=== PATIENT | female | born 1990 | race Caucasian/White ===

== ENCOUNTER 2016-09-29 17:57 | Emergency (ER) | payer OTHER ==
--- NOTE | 2016-09-29 18:25 | ERNOTE ---
Medical Problem HPI - Narrative Date of Service: 09/29/16 - General Chief Complaint: General Assessment Time Seen by Provider: 09/29/16 18:09 Source: patient Exam Limitations: no limitations - Immun/Allergies/Home Medications Immunizations: IMMUNIZATION HX Immunizations Up to Date Yes History of Influenza Vaccine No Hx Pneumococcal Vaccination No Allergies/Adverse Reactions: Allergies Penicillins Allergy (Unknown, Verified 09/29/16 18:07) acetaminophen [From Vicodin] Adverse Reaction (Mild, Verified 09/29/16 18:07) Nausea hydrocodone [From Vicodin] Adverse Reaction (Mild, Verified 09/29/16 18:07) Nausea - History of Present History Narrative: Pt. comes in with c/o moderate amount of vaginal bleeding for two days. Pt. denies any SOB, CP, NVD, but does state that she has mild BLQ cramping. Pt. is 11 weeks with her LMP Jul 05. Pt. denies any dizziness or syncope. Pt. denies any alleviating or aggravating factors. Review of Systems - Review of Systems Constitutional: Present: no symptoms reported. Absent: recent illness, fever, chills, weakness, fatigue, malaise EYE: Present: no symptoms reported ENT: Present: no symptoms reported Respiratory: Present: no symptoms reported. Absent: shortness of breath, cough , wheezing Cardiology: Present: no symptoms reported. Absent: chest pain, palpitations, edema Gastrointestinal/Abdominal: Present: abdominal pain - BLQ and suprapubic Genitourinary: Present: discharge - blood Musculoskeletal: Present: no symptoms reported. Absent: back pain, joint pain Skin: Present: no symptoms reported Neurological: Present: no symptoms reported. Absent: headache, dizziness/light- headedness, numbness, tingling All Other Systems: All systems neg except as marked - Patient's Past Medical History Patient History - Medical: No pertinent hx Patient History - Cardiac/Respiratory: No pertinent hx Patient History - Cancer: No Hx of Cancer Patient History - Surgical Procedures: Other Patient History - Other: None LMP (females 10-50): - Social History Living Situations: home Psych History: No pertinent hx Smoking Status: Current every day smoker - Immunizations Immunizations Up to Date: Yes Hx Pneumococcal Vaccination: No History of Influenza Vaccine: No Physical Exam - Physical Exam General Appearance: Present: wd/wn, alert, no apparent distress Eye Exam: Normal inspection: bilateral, PERRL: bilateral, EOMI: bilateral Ears, Nose, Throat: Present: normal ENT inspection, normal pharynx Neck: Present: normal inspection, nontender. Absent: lymphadenopathy (R), lymphadenopathy (L) Respiratory: Present: no respiratory distress, normal breath sounds, no accessory muscle use, chest nontender Cardiovascular/Chest: Present: regular rate, rhythm, no murmur, normal peripheral pulses Gastrointestinal/Abdominal: Present: normal bowel sounds, nondistended, soft, no organomegaly, tenderness - suprapubic Back Exam: Present: normal inspection, normal range of motion, no CVA tenderness , no vertebral tenderness Neurological Exam: Present: alert, oriented, normal mood/affect, no motor/ sensory deficits Skin Exam: Present: normal color, warm/dry. Absent: pallor, skin rash Pelvic Exam: Present: active bleeding - moderate. Absent: cervical motion tendernes, tender adnexa, tender uterus ED Progress - Date and Time Seen: Date and Time: 09/29/16 20:[address] Brennan and we will have pt. recheck HCG in 2 days and encourage pt to have ultrasound in 2 days as well. - Results and Orders Patient's Lab Results:: I have reviewed the patient's lab results. - Vital Signs Patient's Vital Signs:: I have reviewed the patient's vital signs. Vital Signs: Vital Signs 09/29/16 18:03 Temperature 36.9 C Pulse Rate 86 Respiratory 16 Rate Blood Pressure 137/81 O2 Sat by Pulse 85 L Oximetry - CT/Ultrasound CT/Ultrasound Narrative: US with cystic lesion in fundus that could be early twin or molar . - Progress/Reassessment Chief Complaint: General Assessment Progress:: Unchanged Departure - Departure Clinical Impression: Threatened miscarriage Disposition: Home self-care Condition: Good Instructions: Threatened Miscarriage, Ilka-ci-Rubr, Pelvic Rest Additional Instructions: Please follow up with your [employer] OFFICER for repeat HCG levels and repeat Ultrasound on Tuesday. Please call first thing in the morning for appointment. Please no working or house work bed rest only, no sex or douching. No lifting. Please return to the ER if you start to get worse with pain or bleeding. Referrals: Teresa Herman ARNP [Primary Care Provider] -
[2016-09-29 18:33] LABS: Hematocrit 44.6 % (37.0-47.0); Hemoglobin 15.3 gm/dL (12.5-16.0); Mean Cell Volume 88.3 fl (78-100); Mean Corpuscular Hemoglobin 30.3 pg (27-31); Mean Corpuscular Hgb Conc 34.3 g/dl (32-36); Mean Platelet Volume 9.5 fl (6.0-9.5); Neutrophil # 5.6 K/mm3 (1.3-6.0); Neutrophil % 54.6 % (42-75.0); Platelet Count 275 K/mm3 (150-450); Red Blood Count 5.05 M/mm3 (4.2-5.4); Red Cell Distribution Width 12.7 % (11.5-14.0); White Blood Count 10.2 K/mm3 (4.0-10.5)
--- OUTSIDE RECORDS SUMMARY | 2016-09-29 18:42 | XMS REPORT | Continuity of Care Document ---
:1990 Author Organization [facility] ([facility]) Address [place] [address] Phone [phone] Care Team Providers Name Role Phone Unavailable Primary Care Provider Unavailable Source Comments This disclosure is being made pursuant to the Care Everywhere program, applicable federal and state laws, and may not contain all informaitonavailable regarding this patient.[facility] ([facility]) Active Allergies and Adverse Reactions Not on File Current Medications Not on file Active Problems Not on file Social History Tobacco Use Types Packs/Day Years Used Date Never Assessed Plan of Care Health Maintenance Due Date Last Done Comments Hepatitis B Vaccine (1 of 3 - Primary Series) 1990 HPV Vaccine (1 of 3 - Female/Unknown 3 Dose Series) 2001 Tdap Vaccine 2001 Cervical Cancer Screening 01/29/2008 Lipid Disorder Screening 01/29/2008 MMR Vaccine 01/29/2008 Td Vaccine 01/29/2008 Varicella Vaccine (1 of 2 - Adult - No Evidence of 01/29/2008 Immunity) Influenza Vaccine: Seasonal (#1) 12/29/2015 Results from Last 3 Months Not on file
[2016-09-29 18:52] LABS: Albumin * 3.8 gm/dl (3.4-5.0); Anion Gap 14.8 mmol/L (6.8-13.8); BUN/Creatinine Ratio 10.1 (9.0-21.6); Bilirubin, Total 0.2 mg/dL (0.0-1.1); Ca. Corrected For Albumin 8.9 mg/dL (8.4-10.2); Calcium * 9.1 mg/dL (7.9-10.9); Carbon Dioxide 25.5 mmol/L (24-32.6); Potassium 3.3 mmol/L (3.4-4.6); Total Protein 7.9 gm/dL (6.2-8.2)
[2016-09-29 19:34] LABS: Urine Bilirubin Negative (NEGATIVE); Urine Blood Negative /ul (NEGATIVE); Urine Ketone Negative (NEGATIVE); Urine Nitrite Negative (NEGATIVE); Urine Protein Negative (NEGATIVE); Urine Specific Gravity >=1.030 SP.GR. (1.005-1.010); Urine Urobilinogen Normal (NORMAL)
[2016-09-29 19:47] LABS: Urine Appearance Clear; Urine Bacteria None Seen; Urine Color Yellow; Urine RBC None Seen /hpf (0-5); Urine WBC None Seen /hpf (0-5)
[2016-09-29 20:49] VITALS: BP 139/80
== END 2016-09-29 21:27 | disposition home or self-care (01) ==
LOC: ER 17:57
DX: O20.0 Threatened abortion (principal); Z3A.11 11 weeks gestation of pregnancy; Z33.1 Pregnant state, incidental; Z72.0 Tobacco use

== ENCOUNTER 2018-11-28 14:26 | Inpatient (IN) ==
[2018-11-28] MEDS ORDERED: NALBUPHINE HCL 10 MG/ML AMPUL IV PRN ×2 (14:31)
[2018-11-28] MEDS ORDERED: OXYTOCIN/DEXTROSE 5%-WATER 30 UNITS/500 ML BAG IV ONE (14:31)
[2018-11-28] MEDS ORDERED: ceFAZolin SODIUM/DEXTROSE,ISO 2 GM/50 ML BAG IV ONE (14:31)
[2018-11-28] MEDS ORDERED: LIDOCAINE HCL 50 ML VIAL PERI PRN (14:31)
[2018-11-28] MEDS ORDERED: RINGER'S SOLUTION,LACTATED 1,000 ML IV ONE (14:31)
[2018-11-28] MEDS ORDERED: ONDANSETRON 4 MG TAB.RAPDIS PO PRN (14:31)
--- NOTE | 2018-11-28 14:45 | HP ---
Chief Complaint - Chief Complaint Date of Service: 11/28/18 Time of Service: 14:37 Chief Complaint: Induction of labor History of Present Illness: The patient denies regular ctx, vb or lof. Fetus is active Medical History (Updated 09/12/18 @ 13:59 by Светлана Garcia RN) Threatened miscarriage (Acute) Onset Date: 09/12/18 Dermatitis Obesity Depression Onset Date: ~02/2016 Sertraline- no medication since 2016 , spontaneous Onset Date: ~09/2016 Chlamydia infection Onset Date: ~2011 Heart murmur at Otitis media Torn ligament Onset Date: ~2014 Left thumb w/repair Vertigo Surgical History: Surgical History (Updated 04/19/18 @ 15:32 by Светлана Garcia RN) H/O adenoidectomy Onset Date: 05/27/98 H/O thumb surgery Left H/O tympanostomy Onset Date: 05/27/98 Family History: Family History (Updated 04/19/18 @ 15:34 by Светлана Garcia RN) Mother Adopted Grandmother CVA (cerebral vascular accident) Grandfather Lung cancer w/ mets Social History: Preferred Language Portuguese Smoking Status Former smoker Psych History No pertinent hx (Last Updated 11/28/18 @ 13:57 by Claritza Goldsmith MD) No Social History Section defined Review Of Systems (GEN) - Review of Systems Generalized/Overall Review: Present: No Symptoms Reported Misc: All systems neg except as marked Immunizations: IMMUNIZATION HX Immunizations Up to Date Yes History of Influenza Vaccine No Hx Pneumococcal Vaccination No Allergies/Adverse Reactions: Allergies Allergy/AdvReac Type Severity Reaction Status Date / Time Penicillins Allergy Unknown Rash Verified 11/26/18 20:40 acetaminophen [From Vicodin] AdvReac Mild Nausea/Vomi Verified 11/21/18 13:46 ting hydrocodone [From Vicodin] AdvReac Mild Nausea/vomi Verified 11/26/18 20:40 ting Home Medications: HOME MEDICATIONS ferrous sulfate 325 mg (65 mg iron) tablet 325 mg PO DAILY 09/26/18 [Last Taken 11/25/18] Vits96/Iron Fum/Folic [ S] 1 tab PO DAILY 11/28/18 [Last Taken Unknown] Exam - Exam Vital Signs: Vital Signs - Last Taken Temp 36.5 C 11/28/18 14:36 Pulse 90 11/28/18 14:36 Resp 18 11/28/18 14:36 BP 137/85 11/28/18 14:36 Pulse Ox 97 11/28/18 14:36 Constitutional: Present: Alert, Oriented x3, Cooperative, No distress Respiratory: Present: lungs clear, normal breath sounds, no respiratory distress Cardiovascular/Chest: Present: regular rate, rhythm, no murmur Extremity: Present: non-tender, no calf tenderness Skin Exam: Present: normal color, warm/dry, no cyanosis Appearance: Present: appropriate appearance Eye contact: Present: cooperative Thoughts: Present: normal thought pattern Assessment/Plan - Narrative Narrative: 28 year old at 39w 2d for a medical induction of labor for pre- eclampsia. Start pitocin GBS bacteriuria: reaction to PCN is believed to be a rash so will give Ancef for GBS prophylaxis. Check UC as SONDRA Abnormal GCT with normal GTT
--- NOTE | 2018-11-28 21:48 | PN ---
Prashant Note - Interim Date: 11/28/18 Time: 21:47 Narrative: 11/28/18 21:47 Patient comfortable cvx is 2/50/-2 AROM for clear fluid Continue to titrate pitocin up
[2018-11-28] MEDS: ceFAZolin SODIUM 1 GM in DEXTROSE 5 % IN WATER 100 ML IV SCH ×2 (23:00)
[2018-11-28] MEDS ORDERED: ONDANSETRON HCL/PF 2 MG/ML VIAL IV PRN (23:12)
[2018-11-28] MEDS ORDERED: NALOXONE HCL 1 MG/1 ML SYRG IV PRN (23:12)
[2018-11-28] MEDS ORDERED: fentaNYL CITRATE/PF 50 MCG/ML AMPUL IT SCH (23:15)
--- NOTE | 2018-11-28 23:17 | ANES ---
Anesthesia Pre Procedure Eval Vitals/Labs: Last Vital Signs Temp 36.5 C 11/28/18 14:36 Pulse 90 11/28/18 14:36 Resp 18 11/28/18 14:36 BP 137/85 11/28/18 14:36 Pulse Ox 97 11/28/18 14:36 HOME MEDICATIONS ferrous sulfate 325 mg (65 mg iron) tablet 325 mg PO DAILY 09/26/18 [Last Taken 11/25/18] Vits96/Iron Fum/Folic [ S] 1 tab PO DAILY 11/28/18 [Last Taken Unknown] Allergies/Adverse Reactions: Allergies Allergy/AdvReac Type Severity Reaction Status Date / Time Penicillins Allergy Unknown Rash Verified 11/26/18 20:40 acetaminophen [From Vicodin] AdvReac Mild Nausea/Vomi Verified 11/21/18 13:46 ting hydrocodone [From Vicodin] AdvReac Mild Nausea/vomi Verified 11/26/18 20:40 ting - Planned Procedure Planned Procedure: MEDICAL INDUCTION PRE ECLAMPSIA Medication List Reviewed:: Yes Allergies Verified: Yes Medical History (Updated 11/28/18 @ 14:44 by Claritza Goldsmith MD) Threatened miscarriage (Acute) Onset Date: 09/12/18 Dermatitis Obesity Depression Onset Date: ~02/2016 Sertraline- no medication since 2016 , spontaneous Onset Date: ~09/2016 Chlamydia infection Onset Date: ~2011 Heart murmur at Otitis media Torn ligament Onset Date: ~2014 Left thumb w/repair Vertigo Surgical History (Updated 11/28/18 @ 14:44 by Claritza Goldsmith MD) H/O adenoidectomy Onset Date: 05/27/98 H/O thumb surgery Left H/O tympanostomy Onset Date: 05/27/98 Family History (Updated 04/19/18 @ 15:34 by Светлана Garcia RN) Mother Adopted Grandmother CVA (cerebral vascular accident) Grandfather Lung cancer w/ mets - Family Anesthesia History Family History:: no untoward family reactions to anesthesia, no familial bleeding tendencies, no family history of clotting disorders, no family history of premature - Airway/Neck/Teeth Within Normal Limits:: Yes Teeth Condition: intact Neck Exam: full range of motion Mallampatti Score: 1 Thyromental (T-M) distance: > 6 cm Mandibulo Hyoid distance: > 3 cm - Respiratory Respiratory Physical: lungs clear Discussed smoking cessation including day of surgery: No Sleep Apnea currently treated: No Sleep Apnea by current assessment: No - Cardiovascular Tolerate Activity: Fair Heart Sounds: S1 & S2, Regular - Anesthesia Assessment and Plan ASA Class: PS, II, E Anesthesia Type Plan: Epidural - CSE for labor analgesia
[2018-11-28] MEDS ORDERED: LIDOCAINE HCL/EPINEPHRINE 20 ML VIAL ONE (23:20)
--- NOTE | 2018-11-28 23:38 | ANES ---
Post Anesthesia Discharge - Transfer of Care Transfer of Care handoff given to nurse: Yes - Discharge from PACU Discharge from PACU when meets criteria: Yes - Comfortable post CSE
--- NOTE | 2018-11-28 23:44 | ANES ---
Post Anesthesia Assessment - Vital Signs Vitals: Last Vital Signs Temp 36.7 C 11/28/18 23:39 Pulse 81 11/28/18 23:39 Resp 16 11/28/18 23:39 BP 136/71 11/28/18 23:39 Pulse Ox 98 11/28/18 23:39 Airway Patency: Normal - Mental Status Level Of Consciousness: Awake, Alert, Appropriate - Pain Level Pain Score: 0 - N/V Assessment Nausea/Vomiting Presence: None Dehydration:: No
[2018-11-29] MEDS: BUPIVACAINE HCL/0.9 % NACL/PF 250 ML EP PRN ×2 (00:03→14:23)
[2018-11-29] MEDS: ceFAZolin SODIUM 1 GM in DEXTROSE 5 % IN WATER 100 ML IV SCH ×2 (06:36)
[2018-11-29] MEDS ORDERED: FAMOTIDINE 20 MG in DEXTROSE 5 % IN WATER 100 ML IV ONE ×2 (09:00)
[2018-11-29] MEDS: RINGER'S SOLUTION,LACTATED 1,000 ML IV PRN ×2 (09:17→16:30)
--- NOTE | 2018-11-29 13:00 | PN ---
Prashant Note - Interim Date: 11/29/18 Time: 12:59 Narrative: 11/29/18 12:59 Patient comfortable with epidural cvx is /-1 FHT is cat II Continue increasing pitocin
[2018-11-29 13:18] LABS: Hematocrit 40.9 % (37.0-47.0); Hemoglobin 13.5 gm/dL (12.5-16.0); Mean Cell Volume 89.7 fl (78-100); Mean Corpuscular Hemoglobin 29.6 pg (27-31); Mean Platelet Volume 10.5 fl (8-12.5); Neutrophil # 12.5 K/mm3 (1.3-6.0); Neutrophil % 82.4 % (42-75.0); Platelet Count 216 K/mm3 (150-450); Red Blood Count 4.56 M/mm3 (4.2-5.4); Red Cell Distribution Width 14.3 % (11.5-14.0); White Blood Count 15.1 K/mm3 (4.0-10.5)
[2018-11-29 13:34] LABS: Albumin * 2.6 gm/dl (3.4-5.0); BUN/Creatinine Ratio 7.2 (9.0-21.6); Bilirubin, Total 0.4 mg/dL (0.0-1.1); Ca. Corrected For Albumin 9.6 mg/dL (8.4-10.2); Calcium * 8.8 mg/dL (7.9-10.9); Carbon Dioxide 21.3 mmol/L (24-32.6); Potassium 4.3 mmol/L (3.4-4.6); Total Protein 6.6 gm/dL (6.2-8.2)
[2018-11-29 13:53] LABS: Random Urine Total Protein 35.8 mg/dL (0-12)
--- NOTE | 2018-11-29 16:24 | PN ---
Progess Note - Interim Date: 11/29/18 Time: 16:23 Narrative: 11/29/18 16:23 cvx unchanged at 9 cm so proceed with primary delivery due to arrest of dilation. All risks, benefits, and alternatives of the procedure were explained to the patient and the patient consented to the procedure.
--- NOTE | 2018-11-29 16:27 | ANES ---
Anesthesia Pre Procedure Eval Vitals/Labs: Last Vital Signs Temp 36.7 C 11/28/18 23:39 Pulse 81 11/28/18 23:39 Resp 16 11/28/18 23:39 BP 136/71 11/28/18 23:39 Pulse Ox 98 11/28/18 23:39 HOME MEDICATIONS ferrous sulfate 325 mg (65 mg iron) tablet 325 mg PO DAILY 09/26/18 [Last Taken 11/25/18] Vits96/Iron Fum/Folic [ S] 1 tab PO DAILY 11/28/18 [Last Taken Unknown] Allergies/Adverse Reactions: Allergies Allergy/AdvReac Type Severity Reaction Status Date / Time Penicillins Allergy Unknown Rash Verified 11/26/18 20:40 acetaminophen [From Vicodin] AdvReac Mild Nausea/Vomi Verified 11/21/18 13:46 ting hydrocodone [From Vicodin] AdvReac Mild Nausea/vomi Verified 11/26/18 20:40 ting - Planned Procedure Planned Procedure: MEDICAL INDUCTION PRE ECLAMPSIA Medication List Reviewed:: Yes Allergies Verified: Yes Medical History (Updated 11/28/18 @ 14:44 by Claritza Goldsmith MD) Threatened miscarriage (Acute) Onset Date: 09/12/18 Dermatitis Obesity Depression Onset Date: ~02/2016 Sertraline- no medication since 2016 , spontaneous Onset Date: ~09/2016 Chlamydia infection Onset Date: ~2011 Heart murmur at Otitis media Torn ligament Onset Date: ~2014 Left thumb w/repair Vertigo Surgical History (Updated 11/28/18 @ 14:44 by Claritza Goldsmith MD) H/O adenoidectomy Onset Date: 05/27/98 H/O thumb surgery Left H/O tympanostomy Onset Date: 05/27/98 Family History (Updated 04/19/18 @ 15:34 by Светлана Garcia RN) Mother Adopted Grandmother CVA (cerebral vascular accident) Grandfather Lung cancer w/ mets - Family Anesthesia History Family History:: no untoward family reactions to anesthesia - Airway/Neck/Teeth Within Normal Limits:: Yes Teeth Condition: intact Neck Exam: full range of motion Mallampatti Score: 2 Thyromental (T-M) distance: > 6 cm Mandibulo Hyoid distance: > 3 cm - Respiratory Respiratory Physical: lungs clear Smoking Status: Former smoker Sleep Apnea currently treated: No Sleep Apnea by current assessment: No - Cardiovascular Tolerate Activity: Good Heart Sounds: S1 & S2, Regular - Anesthesia Assessment and Plan ASA Class: PS, II, E Anesthesia Type Plan: Epidural Planned difficult intubation/equipment available: No
[2018-11-29] MEDS ORDERED: ceFAZolin SODIUM 3 GM in DEXTROSE 5 % IN WATER 100 ML IV ONE ×2 (16:35)
[2018-11-29] MEDS ORDERED: OXYTOCIN 20 UNITS in RINGER'S SOLUTION,LACTATED 1,000 ML IV ONE (16:35)
[2018-11-29] MEDS ORDERED: diphenhydrAMINE HCL 25 MG CAPSULE PO PRN (17:32)
[2018-11-29] MEDS ORDERED: KETOROLAC TROMETHAMINE 30 MG/ML VIAL IV PRN (17:32)
[2018-11-29] MEDS ORDERED: SIMETHICONE 80 MG TAB.CHEW PO PRN (17:32)
[2018-11-29] MEDS ORDERED: SENNOSIDES 8.6 MG TABLET PO PRN (17:32)
[2018-11-29] MEDS ORDERED: ONDANSETRON HCL/PF 2 MG/ML VIAL IV PRN (17:32)
[2018-11-29] MEDS ORDERED: oxyCODONE HCL/ACETAMINOPHEN 1 TAB TABLET PO PRN (17:32)
[2018-11-29] MEDS ORDERED: BISACODYL 10 MG SUPP.RECT RC PRN (17:32)
--- NOTE | 2018-11-29 17:54 | OR ---
Operative Report - Dictated Report Narrative: Date of delivery: 11/29/2018 Time of delivery: 1702 Gender: male APGARS: 8/9 weight: 3482 grams Preoperative diagnosis: IUP @ 39w 3d, pre-eclampsia without severe features, arrest of dilation Postoperative diagnosis: IUP @ 39w 3d, pre-eclampsia without severe features, arrest of dilation, OP presentation with compound presentation, loose nuchal cord Procedure: primary delivery Surgeon: Dr. Goldsmith Anesthesia: Epidural Anesthesiologist: Zohaib Garcia CRNA Description of the procedure: The patient was taken to the operating room where her epidural anesthesia was found to be adequate. She was then prepped and draped in the supine position in the standard surgical fashion. A Pfannestiel skin incision was made. The incision was carried through the subcutaneous tissue. The subcutaneous tissue was found to be edematous consistent with the diagnosis of pre-eclampsia. The fascia was incised in the midline. The fascia was from the underlying rectus muscles. The rectus muscles were in the midline. The peritoneum was entered bluntly far away from the bladder. A large Alejandro retractor was placed. The uterus was incised in a low transverse fashion. The fetus was noted to be in the occiput posterior presentation and a loose nuchal cord was noted which was reduced. There was also a compound presentation with the left hand adjacent to the head. The rest of the infant was delivered without difficulty and atraumatically. The infant was handed off to the attending pediatric staff. Cord blood was obtained. The placenta was delivered manually and without difficulty. The uterus felt warm. The uterus was cleared of all clots and debris and a small piece of remaining membranes. The uterine incision was closed with 0-vicryl in a running locking fashion. Hemostasis was excellent. The Alejandro retractor was removed from the abdomen. The fascia was closed with 1-0 vicryl. The subcutaneous tissue was irrigated. The subcutaneous tissue space was closed with 2-0 vicryl. The skin incision was closed with 3-0 monocryl on a Aravind needle. Dermabond was placed over the incision and a pressure dressing was placed as well. All sponge, lap, and needle counts were correct. The patient tolerated the procedure well. She was transferred to the recovery room in stable condition. History for MU Definition: * The number of deliveries resulting in a live the patient experienced prior to current hospitalization * The previous delivery of live twins or any live multiple gestation is considered one live event. *If primagravida or nulliparous is documented select zero for the number of previous live births. Live Events: 0
--- NOTE | 2018-11-29 17:55 | ANES ---
Post Anesthesia Discharge - Transfer of Care Transfer of Care handoff given to nurse: Yes - Discharge from PACU Discharge from PACU when meets criteria: Yes
--- NOTE | 2018-11-29 17:56 | ANES ---
Post Anesthesia Assessment - Vital Signs Vitals: Last Vital Signs Temp 36.6 C 11/29/18 17:45 Pulse 116 H 11/29/18 17:50 Resp 12 11/29/18 17:50 BP 114/51 11/29/18 17:50 Pulse Ox 100 11/29/18 17:50 Airway Patency: Normal - Mental Status Level Of Consciousness: Awake - Pain Level Pain Score: 0 - N/V Assessment Nausea/Vomiting Presence: None Dehydration:: No
[2018-11-29] MEDS: ceFAZolin SODIUM 1 GM in DEXTROSE 5 % IN WATER 50 ML IV SCH ×4 (18:20→22:32)
[2018-11-29] MEDS ORDERED: ACETAMINOPHEN 325 MG TABLET PO ONE (18:48)
[2018-11-29] MEDS: IBUPROFEN 800 MG TABLET PO PRN (20:28)
[2018-11-29] MEDS: DOCUSATE SODIUM 100 MG CAPSULE PO SCH (20:28)
[2018-11-29] MEDS: oxyCODONE HCL/ACETAMINOPHEN 1 TAB TABLET PO PRN (21:25)
[2018-11-30] MEDS: oxyCODONE HCL/ACETAMINOPHEN 1 TAB TABLET PO PRN ×6 (00:36→21:32)
[2018-11-30] MEDS: ceFAZolin SODIUM 1 GM in DEXTROSE 5 % IN WATER 50 ML IV SCH ×2 (06:37)
[2018-11-30] MEDS: DOCUSATE SODIUM 100 MG CAPSULE PO SCH ×2 (08:02→20:52)
--- NOTE | 2018-11-30 09:03 | PN ---
Subjective - Date and Time Seen Date: 11/30/18 Time: 09:01 Subjective Narrative: Patient without complaints Objective Objective Narrative: See vital signs - Review of Systems Generalized/Overall Review: Reports: No Symptoms Reported Misc: All systems neg except as marked - Vitals Vitals: Last Vital Signs Temp 35.7 C L 11/30/18 06:53 Pulse 77 11/30/18 06:53 Resp 14 11/30/18 06:53 BP 124/92 H 11/30/18 06:53 Pulse Ox 98 11/30/18 06:53 - Abnormal Lab Findings Abnormal Lab Findings: Abnormal Lab Results 11/29/18 11/29/18 11/29/18 Range/Units 13:10 13:10 13:15 WBC 15.1 H D (4.0-10.5) K/mm3 RDW 14.3 H (11.5-14.0) % Immature Gran % (Auto) 0.50 H (0.001-0.429) % Immature Gran # (Auto) 0.08 H (0.000-0.0310) K/mm3 Neutrophils % 82.4 H (42-75.0) % Lymphocytes % 10.3 L (20-51) % Neutrophils # 12.5 H (1.3-6.0) K/mm3 Carbon Dioxide 21.3 L (24-32.6) mmol/L Anion Gap 16.0 H (6.8-13.8) mmol/L BUN/Creatinine Ratio 7.2 L (9.0-21.6) Alkaline Phosphatase 174 H (50-170) U/L Albumin 2.6 L (3.4-5.0) gm/dl Ur Random Creatinine 50.7 L (60-200) mg/dL U Random Total Protein 35.8 H (0-12) mg/dL U [place] Prot/Creat Ratio 706 H (0-199) mg/gm - Exam Constitutional: Present: Alert, Oriented x3, Cooperative, No distress Abdomen: Present: soft, nontender, nondistended - fundus Extremity: Present: non-tender, no calf tenderness Skin Exam: Present: normal color, warm/dry, no cyanosis Appearance: Present: appropriate appearance Eye contact: Present: cooperative Thoughts: Present: normal thought pattern Cauti Physician Documentation - Urinary Catheter Management Urethral (Dia) Urethral Indwelling: No Date of Insertion: 11/29/18 Time of Insertion: 00:18 Date of Removal: 11/30/18 Time of Removal: 05:35 Assessment/Plan Plan Narrative: POD 1 s/p primary delivery Doing well Discharge POD 3
[2018-11-30] MEDS: IBUPROFEN 800 MG TABLET PO PRN ×2 (12:06→18:15)
[2018-12-01] MEDS: oxyCODONE HCL/ACETAMINOPHEN 1 TAB TABLET PO PRN ×3 (03:43→13:26)
[2018-12-01] MEDS: DOCUSATE SODIUM 100 MG CAPSULE PO SCH ×2 (06:37→08:07)
[2018-12-01] MEDS: IBUPROFEN 800 MG TABLET PO PRN (06:37)
[2018-12-01 07:11] VITALS: BP 138/87
--- NOTE | 2018-12-01 07:36 | PN ---
Subjective - Date and Time Seen Date: 12/01/18 Time: 07:34 Subjective Narrative: Patient without complaints Objective Objective Narrative: See vital signs - Review of Systems Generalized/Overall Review: Reports: No Symptoms Reported Misc: All systems neg except as marked - Vitals Vitals: Last Vital Signs Temp 36.5 C 12/01/18 07:07 Pulse 73 12/01/18 07:07 Resp 14 12/01/18 07:07 BP 138/87 12/01/18 07:07 Pulse Ox 98 12/01/18 03:36 - Exam Constitutional: Present: Alert, Oriented x3, Cooperative, No distress Abdomen: Present: soft, nontender, nondistended - fundus firm Extremity: Present: non-tender, no calf tenderness Skin Exam: Present: normal color, warm/dry, no cyanosis Appearance: Present: appropriate appearance Eye contact: Present: cooperative Thoughts: Present: normal thought pattern Cauti Physician Documentation - Urinary Catheter Management Urethral (Dia) Urethral Indwelling: No Date of Insertion: 11/29/18 Time of Insertion: 00:18 Date of Removal: 11/30/18 Time of Removal: 05:35 Assessment/Plan Plan Narrative: POD 2 s/p primary delivery Doing well Discharge today
== END 2018-12-01 14:13 | disposition home or self-care (01) | DRG 787 ==
LOC: OB 14:26
PROVIDERS: ADMIT Obstetrics & Gynecology; ATTEND Obstetrics & Gynecology
CPT/HCPCS: 36415; 59025; 80053; 82570; 84155; 84156; 85025; 88307